=== PATIENT | male | born 1955 | race Caucasian/White ===

== ENCOUNTER → 2016-10-29 | Outpatient (CLI) | payer OTHER | LOC: CIMAGING 11:24 | DX: M47.816 Spondylosis without myelopathy or radiculopathy, lumbar region (principal); M89.38 Hypertrophy of bone, other site; M48.06 Spinal stenosis, lumbar region; M99.73 Connective tissue and disc stenosis of intervertebral foramina of lumbar region; M16.12 Unilateral primary osteoarthritis, left hip; Z98.1 Arthrodesis status | CPT/HCPCS: 72131-PO; 72192-PO ==

== ENCOUNTER → 2017-03-07 | Outpatient (CLI) | payer OTHER | LOC: FIMAGING 08:11 | DX: M54.9 Dorsalgia, unspecified (principal); R93.8 Abnormal findings on diagnostic imaging of other specified body structures; Z98.1 Arthrodesis status ==

== ENCOUNTER → 2017-05-04 | Outpatient (CLI) | payer OTHER | LOC: FIMAGING 10:01 | PROVIDERS: ATTEND Physical Medicine & Rehabilitation | DX: M50.30 Other cervical disc degeneration, unspecified cervical region (principal); M99.71 Connective tissue and disc stenosis of intervertebral foramina of cervical region; M12.88 Other specific arthropathies, not elsewhere classified, other specified site; M89.38 Hypertrophy of bone, other site ==

== ENCOUNTER → 2017-05-05 | Outpatient (CLI) | payer OTHER | LOC: FIMAGING 18:41 | PROVIDERS: ATTEND Physical Medicine & Rehabilitation | DX: M25.512 Pain in left shoulder (principal) ==

== ENCOUNTER → 2017-12-05 | Outpatient (CLI) | payer OTHER | LOC: BMCIMAGING 11:18 | PROVIDERS: ATTEND Family Medicine | DX: Z13.820 Encounter for screening for osteoporosis (principal); M85.89 Other specified disorders of bone density and structure, multiple sites; E55.9 Vitamin D deficiency, unspecified ==

== ENCOUNTER → 2018-01-13 | Outpatient (CLI) | payer OTHER | LOC: FIMAGING 14:34 | DX: Z09 Encounter for follow-up examination after completed treatment for conditions other than malignant neoplasm (principal); Z98.1 Arthrodesis status ==

== ENCOUNTER → 2018-05-24 | Outpatient (CLI) | payer OTHER | LOC: FIMAGING 10:22 | DX: Z09 Encounter for follow-up examination after completed treatment for conditions other than malignant neoplasm (principal); G89.18 Other acute postprocedural pain; Z98.1 Arthrodesis status ==

== ENCOUNTER → 2018-12-18 | Outpatient (CLI) | payer OTHER | LOC: BMCIMAGING 12:39 | PROVIDERS: ATTEND Emergency Medicine | DX: S22.42XA Multiple fractures of ribs, left side, initial encounter for closed fracture (principal); J98.11 Atelectasis | CPT/HCPCS: 71101-PO ==

== ENCOUNTER → 2018-12-18 | Outpatient (CLI) | payer OTHER ==
[~2018-12-18] MED LIST: IOPAMIDOL (ISOVUE-300) 100 ML BTL ONE
== END ==
LOC: FIMAGING 15:25
PROVIDERS: ATTEND Emergency Medicine
DX: S22.49XD Multiple fractures of ribs, unspecified side, subsequent encounter for fracture with routine healing (principal)
CPT/HCPCS: Q9967